=== PATIENT | male | born 1945 | race Caucasian/White ===

== ENCOUNTER 2017-11-27 13:35 | Inpatient (IN) | payer MEDICARE, OTHER ==
[~2017-11-27] VITALS: Ht 180.3 cm; Wt 89.0 kg
[2017-11-27] VITALS (19 sets, daily range): BP systolic 2–171; BP diastolic -7–92
[~2017-11-27 13:35] MED LIST: SODIUM CHLORIDE 0.9% 1,000 ML IV ONE
[2017-11-27] MEDS ORDERED: SODIUM CHLORIDE 0.9% 1,000 ML IV ONE ×2 (14:04→14:30)
[2017-11-27] MEDS ORDERED: MIDAZOLAM DRIP 50 mg/50mL 50 ML IV ONE (14:05)
[2017-11-27] MEDS: MIDAZOLAM DRIP 50 mg/50mL 50 ML IV SCH (14:15)
[2017-11-27] MEDS ORDERED: PHENYLEPHRINE HCL 10 MG/ML VL ONE (14:47)
[2017-11-27] MEDS: PHENYLEPHRINE INJ 20 MG in SODIUM CHL 0.9% 250 ML IV SCH (14:48)
[2017-11-27 14:50] LABS: Basophils # (auto) 0 uL; Basophils % (auto) 0.6 % (0.0-2.0); Eosinophils # (auto) 0.1 uL; Eosinophils % (auto) 1.7 % (0.0-7.0); Hemoglobin 11.2 g/dL (13.5-17.5); Lymphocytes # (auto) 1.3 uL; Lymphocytes % (auto) 16.1 % (10.0-50.0); Mean Corpuscular Hemoglobin 30.8 pg (28.0-32.0); Mean Corpuscular Hgb Conc. 33.9 g/dL (32.0-36.0); Mean Corpuscular Volume 91.1 fL (80.0-100.0); Monocytes # (auto) 0.6 uL; Neutrophils # (auto) 5.8 uL; Neutrophils % (auto) 73.6 % (37.0-80.0); Nucleated Red Blood Cells % 0.1 %; Platelet Count (auto) 197 10^3/uL (140-450); Red Blood Cells 3.62 10^6/uL (4.5-5.90); Red Cell Distribution Width 14.2 % (11.8-14.3); White Blood Cell 7.9 10^3/uL (4.4-10.8)
[2017-11-27 15:01] LABS: INR 1.44 (0.9-1.15); Partial Thromboplastin Time 25.4 sec (22.64-33.71); Prothrombin Time 15.7 sec (9.37-12.3)
[2017-11-27 15:10] LABS: Albumin 3.1 g/dL (3.4-5.0); Bilirubin, Total 0.6 mg/dL (0.2-1.0); Calcium 7.5 mg/dL (8.5-10.1); Total Protein 6.3 g/dL (6.4-8.2)
[2017-11-27 15:40] LABS: Potassium 5.7 mmol/L (3.5-5.1)
[2017-11-27] MEDS ORDERED: ALBUTEROL SULF 2.5 MG/0.5ML(0.5%) NEB SOLN NEB STA (15:58)
[2017-11-27] MEDS ORDERED: InsuLIN REG 1unit/0.01ml Soln (100units/ml) IV ONE (16:00)
[2017-11-27] MEDS ORDERED: DEXTROSE (50%) 50ML SYRG IV ONE (16:00)
[2017-11-27] MEDS ORDERED: CALCIUM GLUC 4.65meq/50ml D5AE 50 ML IV ONE (16:00)
[2017-11-27] MEDS ORDERED: PIPERACILLIN-TAZOB 3.375GM 50 ML IV ONE (16:45)
[2017-11-27] MEDS ORDERED: VANCOMYCIN PER PHARMACY 0 MG IV SCH (16:45)
[2017-11-27 17:16] LABS: Lactic Acid w/Reflex 3.4 mmol/L (0.4-2.0)
[2017-11-27] MEDS ORDERED: ATOR1TAB PO (17:42)
[2017-11-27] MEDS ORDERED: FURO20TA3 PO (17:42)
[2017-11-27] MEDS ORDERED: CLOP75TA28 PO (17:42)
[2017-11-27] MEDS ORDERED: LISI-275 PO (17:42)
[2017-11-27] MEDS ORDERED: ASP81EC PO (17:42)
[2017-11-27] MEDS ORDERED: CARV12.544 PO (17:42)
[2017-11-27] MEDS ORDERED: METF-370 PO (17:42)
[2017-11-27] MEDS ORDERED: SPIR25TA89 PO (17:42)
[2017-11-27] MEDS ORDERED: LORazepam 2MG/ML-1ML VIAL IV PRN (18:00)
[2017-11-27] MEDS ORDERED: DEXTROSE (50%) 50ML SYRG IV PRN (18:00)
[2017-11-27] MEDS ORDERED: MORPHINE SULFATE 4 MG/ML SYR/VIAL IV PRN ×2 (18:00)
[2017-11-27] MEDS ORDERED: PROMETHAZINE HCL 25 MG/ML 1ML IV PRN (18:00)
[2017-11-27] MEDS ORDERED: LACTULOSE 20Gm/30ML SOLN PO PRN (18:00)
[2017-11-27] MEDS ORDERED: PANTOPRAZOLE 80 MG in SODIUM CHL 0.9% 60 ML IV ONE (18:00)
[2017-11-27] MEDS ORDERED: NITROGLYCERIN 0.4 MG SL TAB SL PRN (18:00)
[2017-11-27] MEDS: VANCOMYCIN 1,250 MG in D5W 5% 250 ML IV SCH (18:15)
[2017-11-27 18:52] LABS: Urine Bacteria NONE SEEN /hpf (None Seen); Urine Blood 2+ /uL (Negative); Urine Hyaline Cast FEW /lpf (0 - 2); Urine Specific Gravity 1.013 (1.001-1.035); Urine WBC 7 /hpf (0 - 3)
[2017-11-27] MEDS ORDERED: EPINEPHrine HCL 1 MG/10 ML SYRG IV ONE (18:53)
[2017-11-27] MEDS ORDERED: SODIUM BICARBONATE 8.4% INJ 50ML SYRINGE IV ONE (18:53)
[2017-11-27] MEDS ORDERED: MAGNESIUM SULFATE 1GM/100ML 100 ML IV PRN (20:30)
[2017-11-27] MEDS: ACCU-CHEK COMFORT CURVE STRIP VI SCH (20:45)
[2017-11-27] MEDS: InsuLIN REG 1unit/0.01ml Soln (100units/ml) SC SCH (20:45)
[2017-11-27] MEDS: CLINDAMYCIN 600MG IV 50 ML IV SCH (22:00)
[2017-11-27] MEDS: ATORVASTATIN 20 MG TAB PO SCH (22:00)
[2017-11-27 22:03] LABS: Albumin 3.4 g/dL (3.4-5.0); BUN/Creatinine Ratio 31.3; Bilirubin, Total 1.1 mg/dL (0.2-1.0); Calcium 7.7 mg/dL (8.5-10.1); Magnesium 2.6 mg/dL (1.6-2.6); Potassium 4.9 mmol/L (3.5-5.1); Total Protein 6.4 g/dL (6.4-8.2)
[2017-11-27 22:06] LABS: INR 1.15 (0.9-1.15); Partial Thromboplastin Time 28.3 sec (22.64-33.71); Prothrombin Time 12.6 sec (9.37-12.3)
[2017-11-27 22:33] LABS: Basophils # (auto) 0 uL; Basophils % (auto) 0.1 % (0.0-2.0); Eosinophils # (auto) 0 uL; Hematocrit 32.3 % (41.0-53.0); Hemoglobin 10.9 g/dL (13.5-17.5); Lymphocytes # (auto) 0.3 uL; Lymphocytes % (auto) 2.4 % (10.0-50.0); Mean Corpuscular Hemoglobin 30.5 pg (28.0-32.0); Mean Corpuscular Hgb Conc. 33.8 g/dL (32.0-36.0); Mean Corpuscular Volume 90.2 fL (80.0-100.0); Monocytes # (auto) 0.9 uL; Monocytes % (auto) 6.5 % (0.0-12.0); Neutrophils # (auto) 12.5 uL; Platelet Count (auto) 156 10^3/uL (140-450); Red Blood Cells 3.58 10^6/uL (4.5-5.90); Red Cell Distribution Width 14.2 % (11.8-14.3); White Blood Cell 13.7 10^3/uL (4.4-10.8)
[2017-11-27] MEDS ORDERED: MEPERIDINE HCL (25 MG/ML) 1ML VIAL IV PRN (22:45)
[2017-11-27] MEDS ORDERED: MEPERIDINE HCL (25 MG/ML) 1ML VIAL ONE (22:59)
[2017-11-28] VITALS (104 sets, daily range): BP systolic 99–165; BP diastolic 45–101
[2017-11-28] MEDS: ACCU-CHEK COMFORT CURVE STRIP VI SCH ×6 (00:20→21:38)
[2017-11-28] MEDS: InsuLIN REG 1unit/0.01ml Soln (100units/ml) SC SCH ×6 (00:20→21:43)
[2017-11-28] MEDS ORDERED: PHENYLEPHRINE IV 250 ML IV ONE ×3 (00:25→13:09)
[2017-11-28] MEDS ORDERED: AMIODARONE HCL 900 MG in DEXTROSE 500 ML IV SCH (02:39)
[2017-11-28] MEDS ORDERED: PROPOFOL 100 ML IV ONE ×2 (02:41→15:50)
[2017-11-28] MEDS: VANCOMYCIN 1,250 MG in D5W 5% 250 ML IV SCH ×2 (05:00→17:00)
[2017-11-28] MEDS: CLINDAMYCIN 600MG IV 50 ML IV SCH (06:16)
[2017-11-28 06:32] LABS: Basophils # (auto) 0 uL; Basophils % (auto) 0.1 % (0.0-2.0); Eosinophils # (auto) 0 uL; Hematocrit 31.4 % (41.0-53.0); Hemoglobin 10.7 g/dL (13.5-17.5); Lymphocytes # (auto) 0.4 uL; Lymphocytes % (auto) 3.4 % (10.0-50.0); Mean Corpuscular Hemoglobin 30.7 pg (28.0-32.0); Mean Corpuscular Hgb Conc. 34.2 g/dL (32.0-36.0); Mean Corpuscular Volume 89.9 fL (80.0-100.0); Monocytes # (auto) 1.2 uL; Monocytes % (auto) 9.3 % (0.0-12.0); Neutrophils # (auto) 11.4 uL; Neutrophils % (auto) 87.2 % (37.0-80.0); Nucleated Red Blood Cells % 0.2 %; Platelet Count (auto) 166 10^3/uL (140-450); Red Cell Distribution Width 14.1 % (11.8-14.3); White Blood Cell 13.1 10^3/uL (4.4-10.8)
[2017-11-28 07:01] LABS: BUN/Creatinine Ratio 37.4; Calcium 7.6 mg/dL (8.5-10.1); Potassium 4.3 mmol/L (3.5-5.1)
[2017-11-28] MEDS: PHENYLEPHRINE INJ 20 MG in SODIUM CHL 0.9% 250 ML IV SCH ×3 (08:00→19:57)
[2017-11-28] MEDS ORDERED: PANTOPRAZOLE 80 MG in SODIUM CHL 0.9% 60 ML IV SCH (08:00)
[2017-11-28] MEDS: MIDAZOLAM DRIP 50 mg/50mL 50 ML IV SCH ×4 (08:19→21:43)
[2017-11-28] MEDS ORDERED: LEVOFLOXACIN 500MG 100 ML IV SCH (10:00)
[2017-11-28] MEDS ORDERED: ASPirin 81 mg TAB NG SCH (10:00)
[2017-11-28] MEDS ORDERED: OPTISON 3ml Vial for INJ IV ONE (11:43)
[2017-11-28] MEDS: PIPERACILLIN-TAZOB 3.375GM 50 ML IV SCH ×2 (12:24→21:43)
[2017-11-28] MEDS: CLOPIDOGREL BISULFATE 75 MG TAB NG SCH (12:25)
[2017-11-28] MEDS: PROPOFOL 100 ML IV SCH (16:20)
[2017-11-28] MEDS: ATORVASTATIN 20 MG TAB PO SCH (23:35)
[2017-11-28] MEDS: PANTOPRAZOLE 40 MG/10 ML VIAL IV SCH (23:35)
[2017-11-28] MEDS ORDERED: SODIUM CHLORIDE 0.9% 500 ML IV ONE (23:45)
[2017-11-29] VITALS (100 sets, daily range): BP systolic 89–164; BP diastolic 45–87
[2017-11-29] MEDS: ACCU-CHEK COMFORT CURVE STRIP VI SCH ×7 (00:56→23:53)
[2017-11-29] MEDS: InsuLIN REG 1unit/0.01ml Soln (100units/ml) SC SCH ×7 (00:56→23:53)
[2017-11-29] MEDS: PIPERACILLIN-TAZOB 3.375GM 50 ML IV SCH ×5 (01:45→23:48)
[2017-11-29] MEDS: MIDAZOLAM DRIP 50 mg/50mL 50 ML IV SCH ×2 (02:08→06:26)
[2017-11-29] MEDS: PHENYLEPHRINE INJ 20 MG in SODIUM CHL 0.9% 250 ML IV SCH ×2 (02:12→17:20)
[2017-11-29 04:19] LABS: Albumin 2.7 g/dL (3.4-5.0); Calcium 7.4 mg/dL (8.5-10.1); Potassium 3.8 mmol/L (3.5-5.1)
[2017-11-29 04:26] LABS: Bilirubin, Total 1.1 mg/dL (0.2-1.0); Total Protein 5.5 g/dL (6.4-8.2)
[2017-11-29 04:43] LABS: Basophils # (auto) 0 uL; Basophils % (auto) 0.1 % (0.0-2.0); Eosinophils # (auto) 0 uL; Eosinophils % (auto) 0.3 % (0.0-7.0); Hematocrit 31.2 % (41.0-53.0); Hemoglobin 10.8 g/dL (13.5-17.5); Lymphocytes # (auto) 0.5 uL; Mean Corpuscular Hemoglobin 31.2 pg (28.0-32.0); Mean Corpuscular Hgb Conc. 34.8 g/dL (32.0-36.0); Mean Corpuscular Volume 89.7 fL (80.0-100.0); Monocytes % (auto) 9.9 % (0.0-12.0); Neutrophils # (auto) 8.8 uL; Neutrophils % (auto) 84.7 % (37.0-80.0); Platelet Count (auto) 152 10^3/uL (140-450); Red Blood Cells 3.48 10^6/uL (4.5-5.90); Red Cell Distribution Width 14.3 % (11.8-14.3); White Blood Cell 10.4 10^3/uL (4.4-10.8)
[2017-11-29] MEDS: VANCOMYCIN 1,250 MG in D5W 5% 250 ML IV SCH ×2 (05:13→16:56)
[2017-11-29] MEDS: POTASSIUM CHL 20MEQ/100ML 100 ML IV SCH ×2 (08:58→10:39)
[2017-11-29] MEDS: PANTOPRAZOLE 40 MG/10 ML VIAL IV SCH ×2 (09:29→22:06)
[2017-11-29] MEDS: CLOPIDOGREL BISULFATE 75 MG TAB NG SCH (09:32)
[2017-11-29] MEDS: SODIUM CHLORIDE 0.9% 1,000 ML IV SCH (12:00)
[2017-11-29] MEDS: PROPOFOL 100 ML IV SCH ×2 (16:06→20:00)
[2017-11-29] MEDS: MORPHINE SULFATE 4 MG/ML SYR/VIAL IV PRN (18:10)
[2017-11-29] MEDS ORDERED: AMIODARONE HCL 900 MG IV ONE (19:40)
[2017-11-29] MEDS ORDERED: AMIODARONE HCL (50 MG/ ML) 3 ML VIAL IV ONE (19:41)
[2017-11-29] MEDS ORDERED: AMIODARONE HCL 150 MG in D5W 5% 100 ML IV ONE ×2 (19:45→20:00)
[2017-11-29] MEDS ORDERED: AMIODARONE HCL 900 MG in DEXTROSE 500 ML IV SCH ×2 (19:50→20:10)
[2017-11-29] MEDS ORDERED: ASPirin 81 mg TAB PO ONE (22:00)
[2017-11-29] MEDS: ATORVASTATIN 20 MG TAB PO SCH (22:07)
[2017-11-30] VITALS (104 sets, daily range): BP systolic 83–160; BP diastolic 39–106
[2017-11-30] MEDS: PHENYLEPHRINE INJ 20 MG in SODIUM CHL 0.9% 250 ML IV SCH ×3 (01:40→18:20)
[2017-11-30] MEDS ORDERED: AMIODARONE HCL 900 MG in DEXTROSE 500 ML IV SCH ×2 (01:50→10:48)
[2017-11-30] MEDS: InsuLIN REG 1unit/0.01ml Soln (100units/ml) SC SCH ×5 (04:00→20:00)
[2017-11-30] MEDS: ACCU-CHEK COMFORT CURVE STRIP VI SCH ×5 (04:00→20:00)
[2017-11-30] MEDS: PROPOFOL 100 ML IV SCH ×2 (04:07→22:00)
[2017-11-30] MEDS: SODIUM CHLORIDE 0.9% 1,000 ML IV SCH ×2 (04:07→14:40)
[2017-11-30 04:10] LABS: Basophils # (auto) 0 uL; Basophils % (auto) 0.2 % (0.0-2.0); Eosinophils # (auto) 0 uL; Eosinophils % (auto) 0.1 % (0.0-7.0); Hematocrit 25.8 % (41.0-53.0); Lymphocytes # (auto) 0.6 uL; Lymphocytes % (auto) 5.9 % (10.0-50.0); Mean Corpuscular Hemoglobin 31.3 pg (28.0-32.0); Mean Corpuscular Hgb Conc. 34.9 g/dL (32.0-36.0); Mean Corpuscular Volume 89.6 fL (80.0-100.0); Monocytes # (auto) 1.3 uL; Monocytes % (auto) 13.8 % (0.0-12.0); Neutrophils # (auto) 7.5 uL; Platelet Count (auto) 112 10^3/uL (140-450); Red Blood Cells 2.88 10^6/uL (4.5-5.90); Red Cell Distribution Width 14.5 % (11.8-14.3); White Blood Cell 9.4 10^3/uL (4.4-10.8)
[2017-11-30 04:31] LABS: BUN/Creatinine Ratio 30.8; Calcium 7.5 mg/dL (8.5-10.1); Potassium 3.9 mmol/L (3.5-5.1)
[2017-11-30 05:14] LABS: INR 1.06 (0.9-1.15); Prothrombin Time 11.6 sec (9.37-12.3)
[2017-11-30] MEDS: VANCOMYCIN 1,250 MG in D5W 5% 250 ML IV SCH (05:48)
[2017-11-30] MEDS: PIPERACILLIN-TAZOB 3.375GM 50 ML IV SCH ×3 (05:49→18:23)
[2017-11-30] MEDS: POTASSIUM CHL 20MEQ/100ML 100 ML IV SCH ×2 (08:30→09:50)
[2017-11-30] MEDS: PANTOPRAZOLE 40 MG/10 ML VIAL IV SCH ×2 (09:49→22:00)
[2017-11-30] MEDS: CLOPIDOGREL BISULFATE 75 MG TAB NG SCH (09:49)
[2017-11-30] MEDS: ASPirin 81 mg TAB PO SCH (09:50)
[2017-11-30] MEDS: MIDAZOLAM DRIP 50 mg/50mL 50 ML IV SCH (14:17)
[2017-11-30] MEDS: VANCOMYCIN 1,500 MG in D5W 5% 250 ML IV SCH (18:22)
[2017-11-30] MEDS: ATORVASTATIN 20 MG TAB PO SCH (22:00)
[2017-12-01] VITALS (106 sets, daily range): BP systolic 79–170; BP diastolic 39–110
[2017-12-01] MEDS: PROPOFOL 100 ML IV SCH ×2 (01:30→06:10)
[2017-12-01] MEDS ORDERED: AMIODARONE HCL 900 MG in DEXTROSE 500 ML IV SCH (01:31)
[2017-12-01] MEDS ORDERED: AMIODARONE HCL 900 MG IV ONE (01:37)
[2017-12-01] MEDS: PHENYLEPHRINE INJ 20 MG in SODIUM CHL 0.9% 250 ML IV SCH ×3 (02:40→21:00)
[2017-12-01] MEDS: SODIUM CHLORIDE 0.9% 1,000 ML IV SCH ×2 (04:00→11:37)
[2017-12-01] MEDS: ACCU-CHEK COMFORT CURVE STRIP VI SCH ×6 (04:00→20:00)
[2017-12-01] MEDS: InsuLIN REG 1unit/0.01ml Soln (100units/ml) SC SCH ×6 (04:00→20:00)
[2017-12-01 04:41] LABS: Basophils # (auto) 0 uL; Basophils % (auto) 0.4 % (0.0-2.0); Eosinophils # (auto) 0.1 uL; Eosinophils % (auto) 0.8 % (0.0-7.0); Hematocrit 25.7 % (41.0-53.0); Lymphocytes % (auto) 13.2 % (10.0-50.0); Mean Corpuscular Hemoglobin 31.2 pg (28.0-32.0); Mean Corpuscular Hgb Conc. 34.9 g/dL (32.0-36.0); Mean Corpuscular Volume 89.2 fL (80.0-100.0); Monocytes % (auto) 13.3 % (0.0-12.0); Neutrophils # (auto) 5.4 uL; Neutrophils % (auto) 72.3 % (37.0-80.0); Nucleated Red Blood Cells % 0.1 %; Platelet Count (auto) 106 10^3/uL (140-450); Red Blood Cells 2.88 10^6/uL (4.5-5.90); Red Cell Distribution Width 14.9 % (11.8-14.3); White Blood Cell 7.5 10^3/uL (4.4-10.8)
[2017-12-01 04:54] LABS: BUN/Creatinine Ratio 24.1; Potassium 3.9 mmol/L (3.5-5.1)
[2017-12-01] MEDS: VANCOMYCIN 1,500 MG in D5W 5% 250 ML IV SCH ×2 (05:16→17:12)
[2017-12-01] MEDS: PIPERACILLIN-TAZOB 3.375GM 50 ML IV SCH ×4 (06:00→18:00)
[2017-12-01] MEDS: POTASSIUM CHL 20MEQ/100ML 100 ML IV PRN (06:52)
[2017-12-01] MEDS: CLOPIDOGREL BISULFATE 75 MG TAB NG SCH (09:42)
[2017-12-01] MEDS: ASPirin 81 mg TAB PO SCH (09:42)
[2017-12-01] MEDS: PANTOPRAZOLE 40 MG/10 ML VIAL IV SCH ×2 (09:42→22:00)
[2017-12-01] MEDS ORDERED: FUROSEMIDE 40 MG/4 ML VIAL IV ONE (11:30)
[2017-12-01] MEDS ORDERED: Diabetisource AC 1 Liter GT SCH (11:30)
[2017-12-01] MEDS ORDERED: POTASSIUM CHL 10% (20 MEQ/15ML) 15ml ORAL SOLN GT ONE (11:30)
[2017-12-01] MEDS: MIDAZOLAM DRIP 50 mg/50mL 50 ML IV SCH (11:41)
[2017-12-01] MEDS ORDERED: ENOXAPARIN SOD 60 MG/0.6 ML SYRINGE SC ONE (12:30)
[2017-12-01] MEDS: AMIODARONE HCL 900 MG in DEXTROSE 500 ML IV SCH ×2 (12:30→21:00)
[2017-12-01 14:58] LABS: Free T4 (Free Thyroxine) 1.06 ng/dL (0.89-1.76)
[2017-12-01 14:59] LABS: Free T3 1.73 pg/mL (2.3-4.2)
[2017-12-01] MEDS: ENOXAPARIN SOD 60 MG/0.6 ML SYRINGE SC SCH (22:00)
[2017-12-01] MEDS: ATORVASTATIN 20 MG TAB PO SCH (22:00)
[2017-12-02] VITALS (88 sets, daily range): BP systolic 84–183; BP diastolic 40–117
[2017-12-02] MEDS: InsuLIN REG 1unit/0.01ml Soln (100units/ml) SC SCH ×6 (04:00→20:42)
[2017-12-02] MEDS: ACCU-CHEK COMFORT CURVE STRIP VI SCH ×6 (04:07→20:00)
[2017-12-02] MEDS: PHENYLEPHRINE INJ 20 MG in SODIUM CHL 0.9% 250 ML IV SCH ×3 (04:07→20:51)
[2017-12-02] MEDS: PROPOFOL 100 ML IV SCH (04:30)
[2017-12-02] MEDS: VANCOMYCIN 1,500 MG in D5W 5% 250 ML IV SCH ×2 (05:00→17:15)
[2017-12-02] MEDS: PIPERACILLIN-TAZOB 3.375GM 50 ML IV SCH ×2 (06:00)
[2017-12-02 07:18] LABS: Basophils # (auto) 0 uL; Basophils % (auto) 0.2 % (0.0-2.0); Eosinophils # (auto) 0.1 uL; Eosinophils % (auto) 1.4 % (0.0-7.0); Hematocrit 27.4 % (41.0-53.0); Hemoglobin 9.6 g/dL (13.5-17.5); Lymphocytes # (auto) 0.7 uL; Lymphocytes % (auto) 9.9 % (10.0-50.0); Mean Corpuscular Hemoglobin 30.9 pg (28.0-32.0); Mean Corpuscular Hgb Conc. 34.9 g/dL (32.0-36.0); Mean Corpuscular Volume 88.4 fL (80.0-100.0); Monocytes % (auto) 13.6 % (0.0-12.0); Neutrophils # (auto) 5.3 uL; Neutrophils % (auto) 74.9 % (37.0-80.0); Platelet Count (auto) 117 10^3/uL (140-450); Red Cell Distribution Width 15.6 % (11.8-14.3); White Blood Cell 7.1 10^3/uL (4.4-10.8)
[2017-12-02 07:23] LABS: Calcium 7.9 mg/dL (8.5-10.1); Potassium 3.5 mmol/L (3.5-5.1)
[2017-12-02 07:28] LABS: BUN/Creatinine Ratio 19.4
[2017-12-02] MEDS: ASPirin 81 mg TAB PO SCH (10:00)
[2017-12-02] MEDS: CLOPIDOGREL BISULFATE 75 MG TAB NG SCH (10:08)
[2017-12-02] MEDS: PANTOPRAZOLE 40 MG/10 ML VIAL IV SCH ×2 (10:08→22:37)
[2017-12-02] MEDS: ENOXAPARIN SOD 60 MG/0.6 ML SYRINGE SC SCH ×2 (10:08→22:39)
[2017-12-02] MEDS: SODIUM CHLORIDE 0.9% 1,000 ML IV SCH (10:27)
[2017-12-02] MEDS ORDERED: EPINEPHrine HCL 1 MG/10 ML SYRG ONE (11:06)
[2017-12-02] MEDS ORDERED: DEXTROSE 50% SYRINGE 0 ML IV ONE (11:07)
[2017-12-02] MEDS: AMIODARONE HCL 900 MG in DEXTROSE 500 ML IV SCH ×2 (12:16→20:30)
[2017-12-02] MEDS ORDERED: FUROSEMIDE 40 MG/4 ML VIAL IV ONE (12:45)
[2017-12-02] MEDS ORDERED: POTASSIUM CHL 10% (20 MEQ/15ML) 15ml ORAL SOLN GT ONE (12:45)
[2017-12-02] MEDS: MIDAZOLAM DRIP 50 mg/50mL 50 ML IV SCH (14:17)
[2017-12-02] MEDS: cefTRIAXone 1GM/10ml IVPUSH 10 ML IV SCH (15:20)
[2017-12-02] MEDS: FREE WATER GT SCH (17:06)
[2017-12-02] MEDS: POTASSIUM CHL 20MEQ/100ML 100 ML IV PRN (17:35)
[2017-12-02] MEDS: ATORVASTATIN 20 MG TAB PO SCH (22:39)
[2017-12-03] VITALS (106 sets, daily range): BP systolic 80–170; BP diastolic 38–110
[2017-12-03] MEDS: FREE WATER GT SCH ×4 (00:04→18:00)
[2017-12-03] MEDS: PROPOFOL 100 ML IV SCH (00:05)
[2017-12-03] MEDS: ACCU-CHEK COMFORT CURVE STRIP VI SCH ×6 (00:08→20:06)
[2017-12-03] MEDS: InsuLIN REG 1unit/0.01ml Soln (100units/ml) SC SCH ×6 (00:15→20:07)
[2017-12-03] MEDS: AMIODARONE HCL 900 MG in DEXTROSE 500 ML IV SCH (03:09)
[2017-12-03 03:47] LABS: Basophils # (auto) 0 uL; Basophils % (auto) 0.5 % (0.0-2.0); Eosinophils # (auto) 0.1 uL; Eosinophils % (auto) 1.7 % (0.0-7.0); Hematocrit 27.7 % (41.0-53.0); Hemoglobin 9.6 g/dL (13.5-17.5); Lymphocytes # (auto) 0.6 uL; Lymphocytes % (auto) 10.5 % (10.0-50.0); Mean Corpuscular Hemoglobin 30.5 pg (28.0-32.0); Mean Corpuscular Hgb Conc. 34.8 g/dL (32.0-36.0); Mean Corpuscular Volume 87.5 fL (80.0-100.0); Monocytes # (auto) 0.9 uL; Monocytes % (auto) 15.2 % (0.0-12.0); Neutrophils # (auto) 4.5 uL; Neutrophils % (auto) 72.1 % (37.0-80.0); Platelet Count (auto) 128 10^3/uL (140-450); Red Blood Cells 3.17 10^6/uL (4.5-5.90); White Blood Cell 6.2 10^3/uL (4.4-10.8)
[2017-12-03 04:05] LABS: BUN/Creatinine Ratio 21.9; Calcium 7.7 mg/dL (8.5-10.1); Potassium 3.7 mmol/L (3.5-5.1)
[2017-12-03] MEDS: VANCOMYCIN 1,500 MG in D5W 5% 250 ML IV SCH ×2 (04:23→17:14)
[2017-12-03] MEDS: PHENYLEPHRINE INJ 20 MG in SODIUM CHL 0.9% 250 ML IV SCH ×3 (05:11→21:51)
[2017-12-03] MEDS: POTASSIUM CHL 20MEQ/100ML 100 ML IV PRN (06:03)
[2017-12-03] MEDS: cefTRIAXone 1GM/10ml IVPUSH 10 ML IV SCH (08:12)
[2017-12-03] MEDS: PANTOPRAZOLE 40 MG/10 ML VIAL IV SCH ×2 (10:35→22:08)
[2017-12-03] MEDS: CLOPIDOGREL BISULFATE 75 MG TAB NG SCH (10:35)
[2017-12-03] MEDS: POTASSIUM CHL 10% (20 MEQ/15ML) 15ml ORAL SOLN GT SCH (10:35)
[2017-12-03] MEDS: FUROSEMIDE 40 MG/4 ML VIAL IV SCH (10:35)
[2017-12-03] MEDS: ENOXAPARIN SOD 60 MG/0.6 ML SYRINGE SC SCH (10:36)
[2017-12-03] MEDS: ASPirin 81 mg TAB PO SCH (10:36)
[2017-12-03] MEDS: PIPERACILLIN-TAZOB 3.375GM 50 ML IV SCH ×2 (12:44→19:51)
[2017-12-03] MEDS: MIDAZOLAM DRIP 50 mg/50mL 50 ML IV SCH (14:17)
[2017-12-03] MEDS: ATORVASTATIN 20 MG TAB PO SCH (22:08)
[2017-12-04] VITALS (101 sets, daily range): BP systolic 78–165; BP diastolic 38–115
[2017-12-04] MEDS: ACCU-CHEK COMFORT CURVE STRIP VI SCH ×7 (00:23→23:54)
[2017-12-04] MEDS: InsuLIN REG 1unit/0.01ml Soln (100units/ml) SC SCH ×7 (00:27→23:54)
[2017-12-04] MEDS: PIPERACILLIN-TAZOB 3.375GM 50 ML IV SCH ×5 (00:35→23:53)
[2017-12-04 03:57] LABS: Basophils # (auto) 0 uL; Basophils % (auto) 0.5 % (0.0-2.0); Eosinophils # (auto) 0.1 uL; Eosinophils % (auto) 1.9 % (0.0-7.0); Hematocrit 28.4 % (41.0-53.0); Lymphocytes # (auto) 0.6 uL; Lymphocytes % (auto) 8.2 % (10.0-50.0); Mean Corpuscular Hemoglobin 30.8 pg (28.0-32.0); Mean Corpuscular Hgb Conc. 35.1 g/dL (32.0-36.0); Mean Corpuscular Volume 87.6 fL (80.0-100.0); Monocytes # (auto) 1.1 uL; Monocytes % (auto) 14.9 % (0.0-12.0); Neutrophils # (auto) 5.5 uL; Neutrophils % (auto) 74.5 % (37.0-80.0); Platelet Count (auto) 140 10^3/uL (140-450); Red Blood Cells 3.24 10^6/uL (4.5-5.90); Red Cell Distribution Width 15.5 % (11.8-14.3); White Blood Cell 7.4 10^3/uL (4.4-10.8)
[2017-12-04 04:24] LABS: BUN/Creatinine Ratio 23.9; Potassium 3.8 mmol/L (3.5-5.1)
[2017-12-04] MEDS: VANCOMYCIN 1,500 MG in D5W 5% 250 ML IV SCH ×2 (04:43→17:00)
[2017-12-04] MEDS ORDERED: POTASSIUM CHL 20MEQ/100ML 100 ML IV ONE (05:08)
[2017-12-04] MEDS: FREE WATER GT SCH ×4 (06:00→18:00)
[2017-12-04] MEDS: PHENYLEPHRINE INJ 20 MG in SODIUM CHL 0.9% 250 ML IV SCH ×3 (06:11→22:51)
[2017-12-04] MEDS: POTASSIUM CHL 20MEQ/100ML 100 ML IV PRN (07:47)
[2017-12-04] MEDS: PANTOPRAZOLE 40 MG/10 ML VIAL IV SCH ×2 (10:06→21:59)
[2017-12-04] MEDS: ASPirin 81 mg TAB PO SCH (10:06)
[2017-12-04] MEDS: CLOPIDOGREL BISULFATE 75 MG TAB NG SCH (10:06)
[2017-12-04] MEDS: FUROSEMIDE 40 MG/4 ML VIAL IV SCH (10:06)
[2017-12-04] MEDS: POTASSIUM CHL 10% (20 MEQ/15ML) 15ml ORAL SOLN GT SCH (10:07)
[2017-12-04] MEDS: MIDAZOLAM DRIP 50 mg/50mL 50 ML IV SCH (14:17)
[2017-12-04] MEDS: PROPOFOL 100 ML IV SCH (16:06)
[2017-12-04] MEDS: AMIODARONE HCL 900 MG in DEXTROSE 500 ML IV SCH (20:13)
[2017-12-04] MEDS: MORPHINE SULFATE 4 MG/ML SYR/VIAL IV PRN (21:57)
[2017-12-04] MEDS: ATORVASTATIN 20 MG TAB PO SCH (21:59)
[2017-12-05] VITALS (66 sets, daily range): BP systolic 82–178; BP diastolic 39–112
[2017-12-05 03:43] LABS: Basophils # (auto) 0 uL; Basophils % (auto) 0.2 % (0.0-2.0); Eosinophils # (auto) 0.2 uL; Eosinophils % (auto) 2.2 % (0.0-7.0); Hemoglobin 10.1 g/dL (13.5-17.5); Lymphocytes # (auto) 0.5 uL; Lymphocytes % (auto) 5.8 % (10.0-50.0); Mean Corpuscular Hemoglobin 30.4 pg (28.0-32.0); Mean Corpuscular Hgb Conc. 34.7 g/dL (32.0-36.0); Mean Corpuscular Volume 87.8 fL (80.0-100.0); Monocytes # (auto) 1.1 uL; Monocytes % (auto) 12.6 % (0.0-12.0); Neutrophils # (auto) 6.9 uL; Neutrophils % (auto) 79.2 % (37.0-80.0); Platelet Count (auto) 157 10^3/uL (140-450); Red Cell Distribution Width 15.3 % (11.8-14.3); White Blood Cell 8.7 10^3/uL (4.4-10.8)
[2017-12-05 03:54] LABS: Albumin 2.7 g/dL (3.4-5.0); Calcium 8.2 mg/dL (8.5-10.1); Potassium 3.6 mmol/L (3.5-5.1)
[2017-12-05 03:57] LABS: Bilirubin, Total 1.5 mg/dL (0.2-1.0); Total Protein 5.6 g/dL (6.4-8.2)
[2017-12-05] MEDS: ACCU-CHEK COMFORT CURVE STRIP VI SCH ×3 (04:08→20:10)
[2017-12-05] MEDS: InsuLIN REG 1unit/0.01ml Soln (100units/ml) SC SCH ×3 (04:10→20:10)
[2017-12-05] MEDS ORDERED: POTASSIUM CHL 20MEQ/100ML 100 ML IV ONE (04:21)
[2017-12-05] MEDS: VANCOMYCIN 1,500 MG in D5W 5% 250 ML IV SCH ×2 (04:27→17:17)
[2017-12-05] MEDS: FREE WATER GT SCH ×2 (05:27)
[2017-12-05] MEDS: PHENYLEPHRINE INJ 20 MG in SODIUM CHL 0.9% 250 ML IV SCH (06:24)
[2017-12-05] MEDS: PIPERACILLIN-TAZOB 3.375GM 50 ML IV SCH ×3 (06:24→23:00)
[2017-12-05] MEDS ORDERED: MORPHINE SULFATE 4 MG/ML SYR/VIAL IV PRN ×2 (09:00)
[2017-12-05] MEDS ORDERED: LEVALBUTEROL HCL 1.25 MG/3 ML NEB NEB ONE (09:15)
[2017-12-05] MEDS ORDERED: FUROSEMIDE 40 MG/4 ML VIAL IV SCH (09:15)
[2017-12-05] MEDS ORDERED: ACETYLCYSTEINE 10 %(100MG/ML) SOL 4ML NEB ONE (09:15)
[2017-12-05] MEDS ORDERED: IPRATROPIUM BROM 0.5 MG/2.5ML INH SOL NEB ONE (09:15)
[2017-12-05] MEDS: POTASSIUM CHL 10% (20 MEQ/15ML) 15ml ORAL SOLN GT SCH (09:21)
[2017-12-05] MEDS: CLOPIDOGREL BISULFATE 75 MG TAB NG SCH (10:00)
[2017-12-05] MEDS ORDERED: ACETYLCYSTEINE 10 %(100MG/ML) SOL 4ML NEB SCH (10:00)
[2017-12-05] MEDS: ASPirin 81 mg TAB PO SCH (10:00)
[2017-12-05] MEDS ORDERED: ENOXAPARIN SOD 40 MG/0.4 ML SYRINGE SC SCH (10:00)
[2017-12-05] MEDS: PANTOPRAZOLE 40 MG/10 ML VIAL IV SCH ×2 (10:06→22:15)
[2017-12-05] MEDS ORDERED: PATIENTS OWN MEDICATION (XOPENEX 1.25 MG) IN SCH (12:00)
[2017-12-05] MEDS: LEVALBUTEROL HCL 1.25 MG/3 ML NEB NEB SCH ×2 (12:49→19:46)
[2017-12-05] MEDS: IPRATROPIUM BROM 0.5 MG/2.5ML INH SOL NEB SCH ×2 (12:49→19:46)
[2017-12-05] MEDS: ACETYLCYSTEINE 10 %(100MG/ML) SOL 4ML NEB SCH ×2 (12:49→19:47)
[2017-12-05] MEDS ORDERED: Diabetisource AC 1 Liter GT SCH (13:30)
[2017-12-05] MEDS ORDERED: METOPROLOL TARTRATE 25 MG TAB PO SCH ×2 (14:36→22:00)
[2017-12-05 14:59] LABS: Magnesium 2.1 mg/dL (1.6-2.6); Potassium 3.5 mmol/L (3.5-5.1)
[2017-12-05] MEDS: FUROSEMIDE INJECTION 250 MG in D5W 5% 225 ML IV SCH (15:44)
[2017-12-05] MEDS ORDERED: BENZOCAINE (DENTAL) 20 % SPRAY 60ML MT ONE (18:15)
[2017-12-05] MEDS: POTASSIUM CHL 20MEQ/100ML 100 ML IV PRN ×3 (18:27→22:30)
[2017-12-05] MEDS: AMIODARONE HCL 900 MG in DEXTROSE 500 ML IV SCH (20:30)
[2017-12-05] MEDS: LORazepam 2MG/ML-1ML VIAL IV PRN (20:55)
[2017-12-05] MEDS: ATORVASTATIN 20 MG TAB PO SCH (22:15)
[2017-12-06] VITALS (48 sets, daily range): BP systolic 86–163; BP diastolic 36–102
[2017-12-06] MEDS ORDERED: EPINEPHrine HCL 0.5 ML NEB ONE (00:36)
[2017-12-06] MEDS: IPRATROPIUM BROM 0.5 MG/2.5ML INH SOL NEB SCH ×4 (00:39→19:02)
[2017-12-06] MEDS: ACETYLCYSTEINE 10 %(100MG/ML) SOL 4ML NEB SCH ×4 (00:40→19:02)
[2017-12-06] MEDS: ACCU-CHEK COMFORT CURVE STRIP VI SCH ×4 (02:00→20:00)
[2017-12-06] MEDS: PIPERACILLIN-TAZOB 3.375GM 50 ML IV SCH ×2 (02:00→07:30)
[2017-12-06] MEDS: InsuLIN REG 1unit/0.01ml Soln (100units/ml) SC SCH ×4 (02:00→21:00)
[2017-12-06 04:48] LABS: Basophils # (auto) 0 uL; Basophils % (auto) 0.3 % (0.0-2.0); Eosinophils # (auto) 0.2 uL; Eosinophils % (auto) 2.4 % (0.0-7.0); Hematocrit 27.4 % (41.0-53.0); Hemoglobin 9.7 g/dL (13.5-17.5); Lymphocytes # (auto) 0.6 uL; Mean Corpuscular Hemoglobin 30.8 pg (28.0-32.0); Mean Corpuscular Hgb Conc. 35.5 g/dL (32.0-36.0); Mean Corpuscular Volume 86.9 fL (80.0-100.0); Monocytes # (auto) 0.9 uL; Monocytes % (auto) 11.3 % (0.0-12.0); Neutrophils # (auto) 6.3 uL; Platelet Count (auto) 182 10^3/uL (140-450); Red Blood Cells 3.16 10^6/uL (4.5-5.90); Red Cell Distribution Width 15.6 % (11.8-14.3)
[2017-12-06 05:06] LABS: Albumin 2.7 g/dL (3.4-5.0); Calcium 8.4 mg/dL (8.5-10.1); Potassium 3.4 mmol/L (3.5-5.1)
[2017-12-06 05:12] LABS: Bilirubin, Total 1.5 mg/dL (0.2-1.0); Total Protein 6.3 g/dL (6.4-8.2)
[2017-12-06] MEDS: VANCOMYCIN 1,500 MG in D5W 5% 250 ML IV SCH ×2 (05:15→17:24)
[2017-12-06] MEDS: LEVALBUTEROL HCL 1.25 MG/3 ML NEB NEB SCH ×4 (06:21→19:05)
[2017-12-06] MEDS: LORazepam 2MG/ML-1ML VIAL IV PRN ×2 (08:31→23:30)
[2017-12-06] MEDS: PANTOPRAZOLE 40 MG/10 ML VIAL IV SCH ×2 (10:00→21:11)
[2017-12-06] MEDS ORDERED: TPN PER PHARMACY 0 ML IV SCH (10:15)
[2017-12-06] MEDS ORDERED: ENOXAPARIN SOD 100 MG/1 ML SYRINGE SC ONE (10:45)
[2017-12-06] MEDS: METOPROLOL TARTRATE 1MG/1ML-5ML VIAL IV SCH (11:36)
[2017-12-06 12:11] LABS: Magnesium 2.2 mg/dL (1.6-2.6); Phosphorus 3.6 mg/dL (2.5-4.90)
[2017-12-06] MEDS: POTASSIUM CHL 20MEQ/100ML 100 ML IV SCH ×2 (12:30→13:49)
[2017-12-06] MEDS: POTASSIUM CHL 20MEQ/100ML 100 ML IV PRN (13:16)
[2017-12-06] MEDS: PIPERACILLIN-TAZOB 3.375GM 100 ML IV SCH ×2 (13:19→21:00)
[2017-12-06] MEDS: FUROSEMIDE INJECTION 250 MG in D5W 5% 225 ML IV SCH (16:00)
[2017-12-06 18:58] LABS: Magnesium 2.2 mg/dL (1.6-2.6); Potassium 3.4 mmol/L (3.5-5.1)
[2017-12-06] MEDS ORDERED: TPN PER PHARMACY IV NR ×9 (20:00)
[2017-12-06] MEDS: ENOXAPARIN SOD 100 MG/1 ML SYRINGE SC SCH (21:12)
[2017-12-07] VITALS (34 sets, daily range): BP systolic 0–159; BP diastolic 0–105
[2017-12-07] MEDS: ACETYLCYSTEINE 10 %(100MG/ML) SOL 4ML NEB SCH ×3 (00:45→18:42)
[2017-12-07] MEDS: LEVALBUTEROL HCL 1.25 MG/3 ML NEB NEB SCH ×4 (00:46→18:42)
[2017-12-07] MEDS: IPRATROPIUM BROM 0.5 MG/2.5ML INH SOL NEB SCH ×4 (00:46→18:41)
[2017-12-07] MEDS: ACCU-CHEK COMFORT CURVE STRIP VI SCH ×4 (02:00→17:52)
[2017-12-07] MEDS: InsuLIN REG 1unit/0.01ml Soln (100units/ml) SC SCH ×4 (02:00→17:51)
[2017-12-07 04:22] LABS: Basophils # (auto) 0.1 uL; Basophils % (auto) 0.6 % (0.0-2.0); Eosinophils # (auto) 0.3 uL; Eosinophils % (auto) 3.9 % (0.0-7.0); Hematocrit 28.2 % (41.0-53.0); Hemoglobin 9.9 g/dL (13.5-17.5); Lymphocytes # (auto) 0.7 uL; Lymphocytes % (auto) 8.4 % (10.0-50.0); Mean Corpuscular Hemoglobin 30.4 pg (28.0-32.0); Mean Corpuscular Hgb Conc. 35.2 g/dL (32.0-36.0); Mean Corpuscular Volume 86.4 fL (80.0-100.0); Monocytes # (auto) 0.8 uL; Monocytes % (auto) 9.5 % (0.0-12.0); Neutrophils # (auto) 6.5 uL; Neutrophils % (auto) 77.6 % (37.0-80.0); Platelet Count (auto) 207 10^3/uL (140-450); Red Blood Cells 3.26 10^6/uL (4.5-5.90); Red Cell Distribution Width 15.3 % (11.8-14.3); White Blood Cell 8.4 10^3/uL (4.4-10.8)
[2017-12-07 04:45] LABS: Albumin 2.7 g/dL (3.4-5.0); BUN/Creatinine Ratio 16.9; Bilirubin, Total 1.3 mg/dL (0.2-1.0); Magnesium 2.3 mg/dL (1.6-2.6); Phosphorus 2.8 mg/dL (2.5-4.90); Potassium 3.1 mmol/L (3.5-5.1); Pre Albumin 9.8 mg/dL (20.0-40.0); Total Protein 6.3 g/dL (6.4-8.2)
[2017-12-07] MEDS: VANCOMYCIN 1,500 MG in D5W 5% 250 ML IV SCH ×2 (05:07→17:45)
[2017-12-07] MEDS: METOPROLOL TARTRATE 1MG/1ML-5ML VIAL IV SCH ×5 (06:00→21:01)
[2017-12-07] MEDS: POTASSIUM CHL 20MEQ/100ML 100 ML IV PRN ×6 (08:00→18:43)
[2017-12-07] MEDS: PIPERACILLIN-TAZOB 3.375GM 100 ML IV SCH ×4 (08:00→20:00)
[2017-12-07] MEDS: PANTOPRAZOLE 40 MG/10 ML VIAL IV SCH ×2 (09:40→21:36)
[2017-12-07] MEDS: ENOXAPARIN SOD 100 MG/1 ML SYRINGE SC SCH ×2 (09:41→21:36)
[2017-12-07] MEDS ORDERED: DIGOXIN (250MCG/ML) 2 ML AMPULE IV ONE (11:30)
[2017-12-07] MEDS ORDERED: DEXTROSE (50%) 50ML SYRG IV SCH (12:00)
[2017-12-07] MEDS: LORazepam 2MG/ML-1ML VIAL IV PRN (12:33)
[2017-12-07] MEDS: DIGOXIN (250MCG/ML) 2 ML AMPULE IV SCH ×2 (12:35→17:46)
[2017-12-07 14:53] LABS: Magnesium 2.2 mg/dL (1.6-2.6); Potassium 3.3 mmol/L (3.5-5.1)
[2017-12-07] MEDS: AMIODARONE HCL 900 MG in DEXTROSE 500 ML IV SCH (16:30)
[2017-12-07] MEDS: FUROSEMIDE INJECTION 250 MG in D5W 5% 225 ML IV SCH (16:32)
[2017-12-07] MEDS: MEPERIDINE HCL (25 MG/ML) 1ML VIAL IV PRN (16:42)
[2017-12-07] MEDS: NYSTATIN (MOUTH-THROAT) 500,000 UNITS/5 ML SUSP MT SCH ×2 (17:46→21:36)
[2017-12-07] MEDS ORDERED: TPN PER PHARMACY IV NR ×11 (20:00)
[2017-12-08] VITALS (27 sets, daily range): BP systolic 60–180; BP diastolic 26–97
[2017-12-08] MEDS: ACETYLCYSTEINE 10 %(100MG/ML) SOL 4ML NEB SCH ×4 (00:26→19:02)
[2017-12-08] MEDS: LEVALBUTEROL HCL 1.25 MG/3 ML NEB NEB SCH ×4 (00:26→19:02)
[2017-12-08] MEDS: IPRATROPIUM BROM 0.5 MG/2.5ML INH SOL NEB SCH ×4 (00:27→19:02)
[2017-12-08 00:44] LABS: Calcium 8.3 mg/dL (8.5-10.1); Potassium 3.6 mmol/L (3.5-5.1)
[2017-12-08] MEDS: ACCU-CHEK COMFORT CURVE STRIP VI SCH ×5 (01:00→23:39)
[2017-12-08] MEDS: InsuLIN REG 1unit/0.01ml Soln (100units/ml) SC SCH ×5 (01:16→23:53)
[2017-12-08] MEDS: PIPERACILLIN-TAZOB 3.375GM 100 ML IV SCH ×5 (01:40→23:38)
[2017-12-08] MEDS: DIGOXIN (250MCG/ML) 2 ML AMPULE IV SCH ×5 (01:40→23:39)
[2017-12-08] MEDS: VANCOMYCIN 1,500 MG in D5W 5% 250 ML IV SCH (05:00)
[2017-12-08 05:49] LABS: Basophils # (auto) 0.1 uL; Basophils % (auto) 0.7 % (0.0-2.0); Eosinophils # (auto) 0.4 uL; Eosinophils % (auto) 3.1 % (0.0-7.0); Hematocrit 29.8 % (41.0-53.0); Hemoglobin 10.3 g/dL (13.5-17.5); Lymphocytes # (auto) 0.8 uL; Lymphocytes % (auto) 5.3 % (10.0-50.0); Mean Corpuscular Hgb Conc. 34.5 g/dL (32.0-36.0); Mean Corpuscular Volume 86.8 fL (80.0-100.0); Monocytes # (auto) 1.1 uL; Monocytes % (auto) 7.7 % (0.0-12.0); Neutrophils # (auto) 12.2 uL; Neutrophils % (auto) 83.2 % (37.0-80.0); Platelet Count (auto) 296 10^3/uL (140-450); Red Blood Cells 3.43 10^6/uL (4.5-5.90); Red Cell Distribution Width 15.4 % (11.8-14.3); White Blood Cell 14.6 10^3/uL (4.4-10.8)
[2017-12-08] MEDS: METOPROLOL TARTRATE 1MG/1ML-5ML VIAL IV SCH ×4 (06:00→17:45)
[2017-12-08] MEDS: NYSTATIN (MOUTH-THROAT) 500,000 UNITS/5 ML SUSP MT SCH ×4 (06:00→21:10)
[2017-12-08] MEDS: MEPERIDINE HCL (25 MG/ML) 1ML VIAL IV PRN ×2 (06:02→16:00)
[2017-12-08 06:26] LABS: Bilirubin, Total 1.2 mg/dL (0.2-1.0); Calcium 8.3 mg/dL (8.5-10.1); Magnesium 2.2 mg/dL (1.6-2.6); Phosphorus 2.6 mg/dL (2.5-4.90); Total Protein 6.9 g/dL (6.4-8.2)
[2017-12-08] MEDS: FLUCONAZOLE 200MG/100ML 100 ML IV SCH (09:55)
[2017-12-08] MEDS: ENOXAPARIN SOD 100 MG/1 ML SYRINGE SC SCH ×2 (09:55→21:11)
[2017-12-08] MEDS: PANTOPRAZOLE 40 MG/10 ML VIAL IV SCH ×2 (09:55→21:11)
[2017-12-08 10:27] LABS: INR 1.05 (0.9-1.15); Prothrombin Time 11.5 sec (9.37-12.3)
[2017-12-08] MEDS ORDERED: TPN PER PHARMACY IV NR ×11 (20:00)
[2017-12-08] MEDS: AMIODARONE HCL 900 MG in DEXTROSE 500 ML IV SCH (20:39)
[2017-12-08] MEDS: LINEZOLID 600MG/300ML 300 ML IV SCH (21:11)
[2017-12-08] MEDS: MORPHINE SULFATE 4 MG/ML SYR/VIAL IV PRN (21:11)
[2017-12-08] MEDS: FUROSEMIDE INJECTION 250 MG in D5W 5% 225 ML IV SCH (21:29)
[2017-12-08] MEDS: LORazepam 2MG/ML-1ML VIAL IV PRN (23:38)
[2017-12-09] VITALS (60 sets, daily range): BP systolic 63–159; BP diastolic 41–84
[2017-12-09] MEDS: IPRATROPIUM BROM 0.5 MG/2.5ML INH SOL NEB SCH ×4 (00:40→18:55)
[2017-12-09] MEDS: LEVALBUTEROL HCL 1.25 MG/3 ML NEB NEB SCH ×4 (00:40→18:55)
[2017-12-09] MEDS: ACETYLCYSTEINE 10 %(100MG/ML) SOL 4ML NEB SCH ×4 (00:40→18:55)
[2017-12-09] MEDS: METOPROLOL TARTRATE 1MG/1ML-5ML VIAL IV SCH ×3 (01:18→12:10)
[2017-12-09] MEDS: MORPHINE SULFATE 4 MG/ML SYR/VIAL IV PRN ×3 (03:57→21:31)
[2017-12-09] MEDS: DIGOXIN (250MCG/ML) 2 ML AMPULE IV SCH (04:06)
[2017-12-09 04:18] LABS: Basophils # (auto) 0.1 uL; Basophils % (auto) 0.4 % (0.0-2.0); Eosinophils # (auto) 0.1 uL; Eosinophils % (auto) 0.7 % (0.0-7.0); Hematocrit 25.9 % (41.0-53.0); Hemoglobin 9.1 g/dL (13.5-17.5); Lymphocytes # (auto) 0.7 uL; Lymphocytes % (auto) 5.1 % (10.0-50.0); Mean Corpuscular Hemoglobin 30.2 pg (28.0-32.0); Mean Corpuscular Volume 86.4 fL (80.0-100.0); Monocytes # (auto) 1.3 uL; Monocytes % (auto) 9.1 % (0.0-12.0); Neutrophils # (auto) 12.2 uL; Neutrophils % (auto) 84.7 % (37.0-80.0); Platelet Count (auto) 300 10^3/uL (140-450); Red Cell Distribution Width 15.8 % (11.8-14.3); White Blood Cell 14.5 10^3/uL (4.4-10.8)
[2017-12-09 04:26] LABS: INR 1.06 (0.9-1.15); Prothrombin Time 11.6 sec (9.37-12.3)
[2017-12-09 04:29] LABS: Albumin 2.8 g/dL (3.4-5.0); BUN/Creatinine Ratio 16.7; Calcium 8.2 mg/dL (8.5-10.1); Magnesium 2.4 mg/dL (1.6-2.6); Phosphorus 3.8 mg/dL (2.5-4.90); Potassium 3.7 mmol/L (3.5-5.1); Total Protein 6.9 g/dL (6.4-8.2)
[2017-12-09] MEDS: NYSTATIN (MOUTH-THROAT) 500,000 UNITS/5 ML SUSP MT SCH ×4 (06:12→21:30)
[2017-12-09] MEDS: PIPERACILLIN-TAZOB 3.375GM 100 ML IV SCH ×2 (06:13→12:09)
[2017-12-09] MEDS: INSULIN LANTUS (GLARGINE) 1 /0.01ml (100units/ml) SC SCH (06:13)
[2017-12-09] MEDS: InsuLIN REG 1unit/0.01ml Soln (100units/ml) SC SCH ×3 (06:14→18:14)
[2017-12-09] MEDS: ACCU-CHEK COMFORT CURVE STRIP VI SCH ×3 (06:14→18:13)
[2017-12-09] MEDS: POTASSIUM CHL 20MEQ/100ML 100 ML IV PRN (08:03)
[2017-12-09] MEDS: ENOXAPARIN SOD 100 MG/1 ML SYRINGE SC SCH ×2 (09:45→21:30)
[2017-12-09] MEDS: PANTOPRAZOLE 40 MG/10 ML VIAL IV SCH ×2 (10:13→21:31)
[2017-12-09] MEDS: FLUCONAZOLE 200MG/100ML 100 ML IV SCH (10:13)
[2017-12-09] MEDS: LINEZOLID 600MG/300ML 300 ML IV SCH ×2 (10:14→23:37)
[2017-12-09] MEDS ORDERED: SODIUM CHLORIDE 0.9% 250 ML IV ONE (14:15)
[2017-12-09] MEDS: LORazepam 2MG/ML-1ML VIAL IV PRN (14:18)
[2017-12-09] MEDS ORDERED: IODIXANOL 320MG/ML 100ML BTL IV ONE (14:19)
[2017-12-09] MEDS ORDERED: LIDOCAINE HCL 2 %PF INJ 10ML AMP IJ ONE (14:20)
[2017-12-09] MEDS ORDERED: LIDOCAINE 1% HCL (LOCAL ANESTH.) INJ 20ML MDV ID ONE (14:30)
[2017-12-09] MEDS ORDERED: diphenhdrAMINE HCL 50 MG/1 ML VL ONE (15:15)
[2017-12-09] MEDS ORDERED: VANCOMYCIN HCL 1000 MG VL ONE (15:28)
[2017-12-09] MEDS ORDERED: BACITRACIN INJ 50000 UNIT VIAL ONE (15:28)
[2017-12-09] MEDS ORDERED: MIDAZOLAM HCL 1MG/1ML-2 ML VIAL ONE (15:46)
[2017-12-09] MEDS ORDERED: PROPOFOL 100 ML IV ONE (15:53)
[2017-12-09] MEDS: PROPOFOL 100 ML IV SCH (16:00)
[2017-12-09] MEDS: NOREPINEPHRINE 8 MG/250ML KIT 250 ML IV SCH (16:15)
[2017-12-09] MEDS: MEROPENEM 1gm/20ml IVPUSH 20 ML IV SCH (18:14)
[2017-12-09] MEDS: FUROSEMIDE INJECTION 250 MG in D5W 5% 225 ML IV SCH ×2 (19:30→22:00)
[2017-12-09] MEDS ORDERED: TPN PER PHARMACY IV NR ×11 (20:00)
[2017-12-09] MEDS: SODIUM CHLOR 0.9% PF (SALINE LOCK) 10ML VIAL IV SCH (21:30)
[2017-12-10] VITALS (102 sets, daily range): BP systolic 83–155; BP diastolic 40–78
[2017-12-10] MEDS: METOPROLOL TARTRATE 1MG/1ML-5ML VIAL IV SCH ×4 (00:27→18:30)
[2017-12-10] MEDS: ACCU-CHEK COMFORT CURVE STRIP VI SCH ×4 (00:27→18:30)
[2017-12-10] MEDS: InsuLIN REG 1unit/0.01ml Soln (100units/ml) SC SCH ×4 (00:27→18:46)
[2017-12-10] MEDS: MEROPENEM 1gm/20ml IVPUSH 20 ML IV SCH ×3 (00:39→18:00)
[2017-12-10] MEDS: IPRATROPIUM BROM 0.5 MG/2.5ML INH SOL NEB SCH ×3 (00:42→18:58)
[2017-12-10] MEDS: LEVALBUTEROL HCL 1.25 MG/3 ML NEB NEB SCH ×3 (00:42→18:58)
[2017-12-10] MEDS: ACETYLCYSTEINE 10 %(100MG/ML) SOL 4ML NEB SCH ×3 (00:42→18:58)
[2017-12-10] MEDS: PROPOFOL 100 ML IV SCH ×2 (02:24→21:00)
[2017-12-10] MEDS: AMIODARONE HCL 900 MG in DEXTROSE 500 ML IV SCH ×2 (02:25→18:00)
[2017-12-10 04:11] LABS: Urine Bacteria NONE SEEN /hpf (None Seen); Urine Blood 2+ /uL (Negative); Urine Budding Yeast FEW /hpf (None Seen); Urine Hyaline Cast FEW /lpf (0 - 2); Urine Mucus FEW (None Seen); Urine Specific Gravity 1.018 (1.001-1.035); Urine WBC 12 /hpf (0 - 3)
[2017-12-10 05:20] LABS: Albumin 2.6 g/dL (3.4-5.0); BUN/Creatinine Ratio 21.9; Bilirubin, Total 1.1 mg/dL (0.2-1.0); Calcium 7.1 mg/dL (8.5-10.1); Magnesium 2.3 mg/dL (1.6-2.6); Phosphorus 3.2 mg/dL (2.5-4.90); Potassium 4.2 mmol/L (3.5-5.1); Pre Albumin 10.7 mg/dL (20.0-40.0); Total Protein 6.4 g/dL (6.4-8.2)
[2017-12-10] MEDS: INSULIN LANTUS (GLARGINE) 1 /0.01ml (100units/ml) SC SCH (05:49)
[2017-12-10] MEDS: NYSTATIN (MOUTH-THROAT) 500,000 UNITS/5 ML SUSP MT SCH ×4 (05:49→22:38)
[2017-12-10 07:39] LABS: Basophils # (auto) 0.1 uL; Basophils % (auto) 0.4 % (0.0-2.0); Eosinophils # (auto) 0.1 uL; Eosinophils % (auto) 0.5 % (0.0-7.0); Hemoglobin 8.6 g/dL (13.5-17.5); Lymphocytes # (auto) 0.7 uL; Lymphocytes % (auto) 4.4 % (10.0-50.0); Mean Corpuscular Hemoglobin 30.2 pg (28.0-32.0); Mean Corpuscular Hgb Conc. 34.5 g/dL (32.0-36.0); Mean Corpuscular Volume 87.6 fL (80.0-100.0); Monocytes # (auto) 1.7 uL; Monocytes % (auto) 10.5 % (0.0-12.0); Neutrophils # (auto) 13.3 uL; Neutrophils % (auto) 84.2 % (37.0-80.0); Platelet Count (auto) 338 10^3/uL (140-450); Red Blood Cells 2.85 10^6/uL (4.5-5.90); Red Cell Distribution Width 15.5 % (11.8-14.3); White Blood Cell 15.8 10^3/uL (4.4-10.8)
[2017-12-10] MEDS: PANTOPRAZOLE 40 MG/10 ML VIAL IV SCH ×2 (09:49→22:38)
[2017-12-10] MEDS: FLUCONAZOLE 200MG/100ML 100 ML IV SCH (09:49)
[2017-12-10] MEDS: SODIUM CHLOR 0.9% PF (SALINE LOCK) 10ML VIAL IV SCH ×2 (09:49→22:38)
[2017-12-10] MEDS: LINEZOLID 600MG/300ML 300 ML IV SCH ×2 (09:50→22:38)
[2017-12-10] MEDS: ENOXAPARIN SOD 100 MG/1 ML SYRINGE SC SCH (10:00)
[2017-12-10] MEDS ORDERED: POTASSIUM CHL 10% (20 MEQ/15ML) 15ml ORAL SOLN GT ONE (11:15)
[2017-12-10] MEDS ORDERED: FUROSEMIDE 40 MG/4 ML VIAL IV ONE (11:15)
[2017-12-10] MEDS ORDERED: PROMETHAZINE HCL 25 MG/ML 1ML IV PRN (13:15)
[2017-12-10] MEDS ORDERED: MAGNESIUM SULFATE 1GM/100ML 100 ML IV PRN (13:15)
[2017-12-10] MEDS ORDERED: POTASSIUM CHL 20MEQ/100ML 100 ML IV PRN (13:15)
[2017-12-10] MEDS ORDERED: NITROGLYCERIN 0.4 MG SL TAB SL PRN (13:15)
[2017-12-10] MEDS ORDERED: CLOPIDOGREL BISULFATE 75 MG TAB NG ONE (13:15)
[2017-12-10] MEDS: FUROSEMIDE INJECTION 250 MG in D5W 5% 225 ML IV SCH (15:00)
[2017-12-10] MEDS: NOREPINEPHRINE 8 MG/250ML KIT 250 ML IV SCH (16:00)
[2017-12-10] MEDS ORDERED: TPN PER PHARMACY IV NR ×11 (20:00)
[2017-12-11] MEDS ORDERED: CLOPIDOGREL BISULFATE 75 MG TAB NG SCH (10:00)
== END 2017-12-10 23:10 | disposition short-term general hospital (02) | DRG 207 ==
LOC: ER 13:35 → ICU WEST 13:36
PROVIDERS: ADMIT Internal Medicine; ATTEND Internal Medicine
PROC: 5A12012 Performance of Cardiac Output, Single, Manual (ICD-10-PCS; principal; 2017-11-27)
PROC: 5A1955Z Respiratory Ventilation, Greater than 96 Consecutive Hours (ICD-10-PCS; 2017-11-27)
PROC: 0BH17EZ Insertion of Endotracheal Airway into Trachea, Via Natural or Artificial Opening (ICD-10-PCS; 2017-11-27)
PROC: 30233N1 Transfusion of Nonautologous Red Blood Cells into Peripheral Vein, Percutaneous Approach (ICD-10-PCS; 2017-11-30)
PROC: 0W993ZZ Drainage of Right Pleural Cavity, Percutaneous Approach (ICD-10-PCS; 2017-12-03)
PROC: 02HV33Z Insertion of Infusion Device into Superior Vena Cava, Percutaneous Approach (ICD-10-PCS; 2017-12-09)
DX: J96.01 Acute respiratory failure with hypoxia (principal); I21.4 Non-ST elevation (NSTEMI) myocardial infarction; I49.01 Ventricular fibrillation; B37.1 Pulmonary candidiasis; J15.212 Pneumonia due to Methicillin resistant Staphylococcus aureus; G93.1 Anoxic brain damage, not elsewhere classified; J69.0 Pneumonitis due to inhalation of food and vomit; R57.0 Cardiogenic shock; K66.1 Hemoperitoneum; G93.41 Metabolic encephalopathy; E87.2 Acidosis; D68.9 Coagulation defect, unspecified; E44.1 Mild protein-calorie malnutrition; J93.9 Pneumothorax, unspecified; S22.31XA Fracture of one rib, right side, initial encounter for closed fracture; X58.XXXA Exposure to other specified factors, initial encounter; Y93.89 Activity, other specified; Y92.238 Other place in hospital as the place of occurrence of the external cause; I11.0 Hypertensive heart disease with heart failure; D64.9 Anemia, unspecified; E03.9 Hypothyroidism, unspecified; E11.9 Type 2 diabetes mellitus without complications; E07.81 Sick-euthyroid syndrome; E78.5 Hyperlipidemia, unspecified; I25.10 Atherosclerotic heart disease of native coronary artery without angina pectoris; I25.2 Old myocardial infarction; I25.5 Ischemic cardiomyopathy; I48.91 Unspecified atrial fibrillation; I50.9 Heart failure, unspecified; I67.2 Cerebral atherosclerosis; E66.9 Obesity, unspecified; I70.8 Atherosclerosis of other arteries; K40.90 Unilateral inguinal hernia, without obstruction or gangrene, not specified as recurrent; Z79.01 Long term (current) use of anticoagulants; Z79.02 Long term (current) use of antithrombotics/antiplatelets; Z86.73 Personal history of transient ischemic attack (TIA), and cerebral infarction without residual deficits; Z87.891 Personal history of nicotine dependence; Z95.5 Presence of coronary angioplasty implant and graft
CPT/HCPCS: 31500; 32555; 36415; 36556; 36569; 36600; 51702; 70450; 71045; 71250; 72125; 73502; 74176; 76604; 76942; 80048; 80053; 80061; 80162; 80202; 81001; 82040; 82270; 82550; 82805; 82962; 83036; 83605; 83615; 83735; 83880; 84100; 84132; 84439; 84443; 84478; 84481; 84484; 85025; 85610; 85652; 85730; 86141; 86850; 86900; 86901; 86920; 87040; 87070; 87077; 87081; 87086; 87186; 87205; 87804; 89051; 92610; 92950; 93005; 93306; 94002; 94003; 94640; 95819; 96361; 96365; 96375; 96379; 99291; A4565; C9113; J0610; J1450; J1815; J1956; J2250; J2543; J2704; J3480; J3490; J7060; J7131; Q9956; Q9967

== ENCOUNTER 2018-07-18 04:32 | Inpatient (IN) | payer MEDICARE, OTHER ==
[2018-07-18] VITALS (13 sets, daily range): BP systolic 82–122; BP diastolic 54–86
[~2018-07-18] VITALS: Ht 182.9 cm; Wt 88.0 kg
[~2018-07-18 04:32] MED LIST changes: +ASP81EC PO; +ATOR1TAB PO; +CARV12.544 PO; +CLOP75TA28 PO; +FURO20TA3 PO; +LISI-275 PO; +METF-370 PO; -SODIUM CHLORIDE 0.9% 1,000 ML IV ONE; +SPIR25TA8 PO
[2018-07-18] MEDS ORDERED: EPINEPHrine HCL 0.5 ML NEB ONE (04:42)
[2018-07-18 05:55] LABS: Eosinophils # (auto) 0.1 uL; Lymphocytes # (auto) 0.6 uL; Mean Corpuscular Hemoglobin 33.7 pg (28.0-32.0); Mean Corpuscular Hgb Conc. 32.9 g/dL (32.0-36.0); Monocytes # (auto) 0.6 uL; Nucleated Red Blood Cells % 0.1 %
[2018-07-18 05:58] LABS: Basophils # (auto) 0 uL; Basophils % (auto) 0.6 % (0.0-2.0); Eosinophils % (auto) 2.1 % (0.0-7.0); Hematocrit 31.2 % (41.0-53.0); Hemoglobin 10.3 g/dL (13.5-17.5); Lymphocytes % (auto) 12.5 % (10.0-50.0); Mean Corpuscular Volume 102.4 fL (80.0-100.0); Monocytes % (auto) 11.6 % (0.0-12.0); Neutrophils # (auto) 3.7 uL; Neutrophils % (auto) 73.2 % (37.0-80.0); Platelet Count (auto) 191 10^3/uL (140-450); Red Blood Cells 3.05 10^6/uL (4.5-5.90)
[2018-07-18 06:03] LABS: Red Cell Distribution Width 20.9 % (11.8-14.3)
[2018-07-18 06:09] LABS: Albumin 2.6 g/dL (3.4-5.0); Calcium 8.1 mg/dL (8.5-10.1); Magnesium 2.8 mg/dL (1.6-2.6); Potassium 4.2 mmol/L (3.5-5.1)
[2018-07-18 06:16] LABS: BUN/Creatinine Ratio 41.4; Bilirubin, Total 0.7 mg/dL (0.2-1.0); Total Protein 6.8 g/dL (6.4-8.2)
[2018-07-18 06:52] LABS: INR 1.15 (0.9-1.15); Partial Thromboplastin Time 27.1 sec (23.78-33.04); Prothrombin Time 12.2 sec (9.27-12.13)
[2018-07-18] MEDS ORDERED: SODIUM CHLORIDE 0.9% 1,000 ML IV ONE (06:59)
[2018-07-18] MEDS ORDERED: FUROSEMIDE 40 MG/4 ML VIAL IV ONE (07:00)
[2018-07-18] MEDS ORDERED: LEVOTHYROXINE SODIUM 100 MCG/5 ML INJ IV ONE (07:00)
[2018-07-18] MEDS ORDERED: NITROGLYCERIN 0.4 MG SL TAB SL PRN (09:00)
[2018-07-18] MEDS ORDERED: MORPHINE SULFATE 4 MG/ML SYR/VIAL IV PRN ×2 (09:00)
[2018-07-18] MEDS ORDERED: DEXTROSE (50%) 50ML SYRG IV PRN (09:00)
[2018-07-18] MEDS ORDERED: ALBUTEROL SULF 2.5 MG/0.5ML(0.5%) NEB SOLN NEB PRN (09:00)
[2018-07-18 09:16] LABS: Urine Bacteria NONE SEEN /hpf (None Seen); Urine Blood Negative /uL (Negative); Urine Specific Gravity 1.012 (1.001-1.035); Urine WBC 1 /hpf (0 - 3)
[2018-07-18] MEDS ORDERED: IOHEXOL 350 MG/ML 100ML IJ ONE (09:53)
[2018-07-18] MEDS ORDERED: PATIENTS OWN MEDICATION (Lisinopril 5 MG) PO SCH (10:00)
[2018-07-18] MEDS: SPIRONOLACTONE 25 MG TAB PO SCH (10:00)
[2018-07-18] MEDS ORDERED: Glucerna 1.2 Cal 1Liter BOTTLE GT SCH (10:00)
[2018-07-18] MEDS ORDERED: PATIENTS OWN MEDICATION (Atorvastatin Calcium 1 TAB) PO SCH (10:00)
[2018-07-18] MEDS ORDERED: POTASSIUM CHL 20 Meq TABLET PO SCH (10:00)
[2018-07-18] MEDS: CLOPIDOGREL BISULFATE 75 MG TAB PO SCH (10:00)
[2018-07-18] MEDS: CARVEDILOL 12.5 MG TAB PO SCH ×2 (11:11→22:00)
[2018-07-18] MEDS: LISINOPRIL 5 MG TAB PO SCH (11:12)
[2018-07-18] MEDS: NITROGLYCERIN 0.2MG/HR TOPICAL PATCH TD SCH (11:12)
[2018-07-18] MEDS: InsuLIN REG 1unit/0.01ml Soln (100units/ml) SC SCH ×3 (11:30→22:30)
[2018-07-18] MEDS: ACCU-CHEK COMFORT CURVE STRIP VI SCH ×3 (11:30→22:30)
[2018-07-18] MEDS ORDERED: IPRATROPIUM BROM 0.5 MG/2.5ML INH SOL NEB SCH (12:00)
[2018-07-18] MEDS ORDERED: ALBUTEROL SULF 2.5 MG/0.5ML(0.5%) NEB SOLN NEB SCH (12:00)
[2018-07-18] MEDS ORDERED: methylPREDNISolone SOD SUCC 40 MG/ML VL IV ONE (13:30)
[2018-07-18] MEDS: ALBUTEROL SULF 2.5 MG/0.5ML(0.5%) NEB SOLN NEB SCH ×3 (14:00→21:48)
[2018-07-18] MEDS: SODIUM CHLOR 0.9% PF (SALINE LOCK) 10ML VIAL/SYR IV SCH ×2 (14:58→22:28)
[2018-07-18] MEDS: DOXYCYCLINE 100MG/250ML 250 ML IV SCH ×2 (14:58→20:33)
[2018-07-18] MEDS: VALPROIC ACID 250 MG/5 ML ORAL SOLN GT SCH ×2 (14:59→22:29)
[2018-07-18] MEDS: PANTOPRAZOLE 40 MG/10 ML VIAL IV SCH (14:59)
[2018-07-18] MEDS: FLORASTOR (S. BOULARDII) 250 MG CAP PO SCH (17:12)
[2018-07-18] MEDS: FUROSEMIDE 40 MG/4 ML VIAL IV SCH (17:12)
[2018-07-18] MEDS: MORPHINE SULFATE 4 MG/ML SYR/VIAL IV PRN (17:23)
[2018-07-18] MEDS: IPRATROPIUM BROM 0.5 MG/2.5ML INH SOL NEB SCH ×2 (18:38→21:48)
[2018-07-18] MEDS: methylPREDNISolone SOD SUCC 40 MG/ML VL IV SCH (22:28)
[2018-07-18] MEDS: ATORVASTATIN 20 MG TAB PO SCH (22:29)
[2018-07-18] MEDS: QUEtiapine FUMARATE 100 MG TAB PEG SCH (22:29)
[2018-07-19] VITALS (19 sets, daily range): BP systolic 87–120; BP diastolic 52–71
[2018-07-19] MEDS: IPRATROPIUM BROM 0.5 MG/2.5ML INH SOL NEB SCH ×6 (01:32→22:08)
[2018-07-19] MEDS: ALBUTEROL SULF 2.5 MG/0.5ML(0.5%) NEB SOLN NEB SCH ×6 (01:32→22:08)
[2018-07-19 05:59] LABS: Basophils # (auto) 0 uL; Eosinophils # (auto) 0 uL; Eosinophils % (auto) 0.1 % (0.0-7.0); Hematocrit 32.4 % (41.0-53.0); Hemoglobin 10.7 g/dL (13.5-17.5); Lymphocytes # (auto) 0.2 uL; Lymphocytes % (auto) 3.1 % (10.0-50.0); Mean Corpuscular Hemoglobin 33.8 pg (28.0-32.0); Mean Corpuscular Hgb Conc. 33.1 g/dL (32.0-36.0); Mean Corpuscular Volume 102.1 fL (80.0-100.0); Monocytes # (auto) 0.1 uL; Monocytes % (auto) 1.5 % (0.0-12.0); Neutrophils # (auto) 4.7 uL; Neutrophils % (auto) 95.3 % (37.0-80.0); Nucleated Red Blood Cells % 0.1 %; Platelet Count (auto) 173 10^3/uL (140-450); Red Blood Cells 3.17 10^6/uL (4.5-5.90); Red Cell Distribution Width 19.9 % (11.8-14.3); White Blood Cell 4.9 10^3/uL (4.4-10.8)
[2018-07-19 06:19] LABS: Cholesterol 83 mg/dL (< 200)
[2018-07-19] MEDS: FUROSEMIDE 40 MG/4 ML VIAL IV SCH ×2 (06:19→18:17)
[2018-07-19] MEDS: SODIUM CHLOR 0.9% PF (SALINE LOCK) 10ML VIAL/SYR IV SCH ×3 (06:19→21:47)
[2018-07-19 06:20] LABS: Albumin 2.5 g/dL (3.4-5.0); Calcium 8.2 mg/dL (8.5-10.1); Potassium 4.4 mmol/L (3.5-5.1)
[2018-07-19] MEDS: ACCU-CHEK COMFORT CURVE STRIP VI SCH ×4 (06:20→21:47)
[2018-07-19 06:21] LABS: HDL Cholesterol 47 mg/dL (40-59); LDL Cholesterol 39 mg/dL (< 100); Triglycerides 54 mg/dL (< 150)
[2018-07-19] MEDS: InsuLIN REG 1unit/0.01ml Soln (100units/ml) SC SCH ×4 (06:21→21:47)
[2018-07-19] MEDS: LEVOTHYROXINE SODIUM 50 MCG TAB PEG SCH (06:26)
[2018-07-19 06:28] LABS: BUN/Creatinine Ratio 32.4; Bilirubin, Total 0.8 mg/dL (0.2-1.0); Total Protein 6.7 g/dL (6.4-8.2)
[2018-07-19] MEDS ORDERED: Glucerna 1.2 Cal 1Liter BOTTLE GT SCH (08:30)
[2018-07-19] MEDS: FLORASTOR (S. BOULARDII) 250 MG CAP PO SCH ×2 (09:28→18:17)
[2018-07-19] MEDS: SPIRONOLACTONE 25 MG TAB PO SCH (09:29)
[2018-07-19] MEDS: DOXYCYCLINE 100MG/250ML 250 ML IV SCH ×2 (09:29→21:46)
[2018-07-19] MEDS: PANTOPRAZOLE 40 MG/10 ML VIAL IV SCH (09:29)
[2018-07-19] MEDS: CARVEDILOL 12.5 MG TAB PO SCH ×2 (09:29→21:06)
[2018-07-19] MEDS: CLOPIDOGREL BISULFATE 75 MG TAB PO SCH (09:29)
[2018-07-19] MEDS: LISINOPRIL 5 MG TAB PO SCH (09:30)
[2018-07-19] MEDS: NITROGLYCERIN 0.2MG/HR TOPICAL PATCH TD SCH ×2 (09:30→09:52)
[2018-07-19] MEDS: VALPROIC ACID 250 MG/5 ML ORAL SOLN GT SCH ×2 (09:31→21:46)
[2018-07-19] MEDS: methylPREDNISolone SOD SUCC 40 MG/ML VL IV SCH ×2 (09:32→21:47)
[2018-07-19] MEDS: POTASSIUM EFFERVESENT TAB 25 MEQ GT SCH (09:52)
[2018-07-19] MEDS ORDERED: FUROSEMIDE 40 MG/4 ML VIAL IV SCH (10:00)
[2018-07-19] MEDS: MORPHINE SULFATE 4 MG/ML SYR/VIAL IV PRN (17:08)
[2018-07-19] MEDS: ATORVASTATIN 20 MG TAB PO SCH (21:47)
[2018-07-19] MEDS: QUEtiapine FUMARATE 100 MG TAB PEG SCH (21:47)
[2018-07-20] VITALS: BP 94/60
[2018-07-20] MEDS: ALBUTEROL SULF 2.5 MG/0.5ML(0.5%) NEB SOLN NEB SCH ×3 (02:16→10:34)
[2018-07-20] MEDS: IPRATROPIUM BROM 0.5 MG/2.5ML INH SOL NEB SCH ×6 (02:16→22:33)
[2018-07-20 04:00] VITALS: BP 110/63
[2018-07-20] MEDS: ACCU-CHEK COMFORT CURVE STRIP VI SCH ×4 (06:24→22:00)
[2018-07-20] MEDS: SODIUM CHLOR 0.9% PF (SALINE LOCK) 10ML VIAL/SYR IV SCH ×3 (06:25→22:35)
[2018-07-20] MEDS: FUROSEMIDE 40 MG/4 ML VIAL IV SCH ×2 (06:30→18:15)
[2018-07-20] MEDS: LEVOTHYROXINE SODIUM 50 MCG TAB PEG SCH (06:30)
[2018-07-20] MEDS: InsuLIN REG 1unit/0.01ml Soln (100units/ml) SC SCH ×4 (06:30→22:33)
[2018-07-20 07:50] VITALS: BP 124/80
[2018-07-20] MEDS ORDERED: IOHEXOL 350 MG/ML 100ML IJ ONE (08:02)
[2018-07-20] MEDS: FLORASTOR (S. BOULARDII) 250 MG CAP PO SCH ×2 (08:41→18:15)
[2018-07-20] MEDS: DOXYCYCLINE 100MG/250ML 250 ML IV SCH ×2 (09:54→21:39)
[2018-07-20] MEDS ORDERED: CLOPIDOGREL BISULFATE 75 MG TAB PO SCH (10:00)
[2018-07-20] MEDS: LISINOPRIL 5 MG TAB PO SCH (10:00)
[2018-07-20] MEDS: SPIRONOLACTONE 25 MG TAB PO SCH (10:00)
[2018-07-20 10:01] LABS: Free T4 (Free Thyroxine) 0.91 ng/dL (0.89-1.76)
[2018-07-20 10:02] LABS: Free T3 2.14 pg/mL (2.3-4.2)
[2018-07-20] MEDS: PANTOPRAZOLE 40 MG/10 ML VIAL IV SCH (11:02)
[2018-07-20] MEDS: methylPREDNISolone SOD SUCC 40 MG/ML VL IV SCH ×2 (11:03→22:34)
[2018-07-20] MEDS: POTASSIUM EFFERVESENT TAB 25 MEQ GT SCH (11:03)
[2018-07-20] MEDS: CARVEDILOL 12.5 MG TAB PO SCH ×3 (11:17→23:05)
[2018-07-20] MEDS: VALPROIC ACID 250 MG/5 ML ORAL SOLN GT SCH ×2 (11:54→21:47)
[2018-07-20 11:55] VITALS: BP 112/73
[2018-07-20 15:43] VITALS: BP 116/70
[2018-07-20 19:50] VITALS: BP 97/57
[2018-07-20] MEDS: ATORVASTATIN 20 MG TAB PO SCH (21:47)
[2018-07-20] MEDS: QUEtiapine FUMARATE 100 MG TAB PEG SCH (22:34)
[2018-07-21] VITALS (7 sets, daily range): BP systolic 93–121; BP diastolic 52–78
[2018-07-21] MEDS: IPRATROPIUM BROM 0.5 MG/2.5ML INH SOL NEB SCH ×6 (01:56→22:02)
[2018-07-21] MEDS: FUROSEMIDE 40 MG/4 ML VIAL IV SCH ×2 (05:52→18:01)
[2018-07-21] MEDS: SODIUM CHLOR 0.9% PF (SALINE LOCK) 10ML VIAL/SYR IV SCH ×3 (05:53→21:06)
[2018-07-21] MEDS: InsuLIN REG 1unit/0.01ml Soln (100units/ml) SC SCH ×4 (05:54→21:08)
[2018-07-21] MEDS: ACCU-CHEK COMFORT CURVE STRIP VI SCH ×4 (05:55→21:07)
[2018-07-21] MEDS: LEVOTHYROXINE SODIUM 50 MCG TAB PEG SCH (06:42)
[2018-07-21] MEDS: LISINOPRIL 5 MG TAB PO SCH (10:00)
[2018-07-21] MEDS: CARVEDILOL 12.5 MG TAB PO SCH ×3 (10:00→21:07)
[2018-07-21] MEDS: SPIRONOLACTONE 25 MG TAB PO SCH (10:00)
[2018-07-21] MEDS: DOXYCYCLINE 100MG/250ML 250 ML IV SCH (10:23)
[2018-07-21] MEDS: methylPREDNISolone SOD SUCC 40 MG/ML VL IV SCH ×2 (10:24→21:06)
[2018-07-21] MEDS: PANTOPRAZOLE 40 MG/10 ML VIAL IV SCH (10:24)
[2018-07-21] MEDS: POTASSIUM EFFERVESENT TAB 25 MEQ GT SCH (10:24)
[2018-07-21] MEDS: VALPROIC ACID 250 MG/5 ML ORAL SOLN GT SCH ×2 (10:25→21:06)
[2018-07-21] MEDS: FLORASTOR (S. BOULARDII) 250 MG CAP PO SCH ×2 (10:25→17:57)
[2018-07-21] MEDS ORDERED: LEVO750T64 PEG (13:25)
[2018-07-21] MEDS ORDERED: FURO40TA4 PO (13:28)
[2018-07-21] MEDS ORDERED: POTA1TAB61 PEG (13:28)
[2018-07-21] MEDS ORDERED: LEVOFLOXACIN 750MG 150 ML IV ONE (13:30)
[2018-07-21] MEDS ORDERED: LIDOCAINE 1% (LOCAL ANESTH.) PF 5ml SDV ONE (14:15)
[2018-07-21] MEDS ORDERED: LIDOCAINE 2% (LOCAL ANESTH.) PF 5ml SDV ONE (14:27)
[2018-07-21] MEDS ORDERED: AMIODARONE HCL 200 MG TAB PO ONE (17:30)
[2018-07-21] MEDS: ATORVASTATIN 20 MG TAB PO SCH (21:07)
[2018-07-21] MEDS: QUEtiapine FUMARATE 100 MG TAB PEG SCH (21:07)
[2018-07-22] VITALS: BP 102/47
[2018-07-22] MEDS: IPRATROPIUM BROM 0.5 MG/2.5ML INH SOL NEB SCH ×4 (02:06→14:48)
[2018-07-22 04:00] VITALS: BP 105/62
[2018-07-22] MEDS: SODIUM CHLOR 0.9% PF (SALINE LOCK) 10ML VIAL/SYR IV SCH ×2 (05:39→14:05)
[2018-07-22] MEDS: FUROSEMIDE 40 MG/4 ML VIAL IV SCH (05:39)
[2018-07-22] MEDS: LEVOTHYROXINE SODIUM 50 MCG TAB PEG SCH (05:40)
[2018-07-22] MEDS: InsuLIN REG 1unit/0.01ml Soln (100units/ml) SC SCH ×2 (05:40→12:48)
[2018-07-22] MEDS: ACCU-CHEK COMFORT CURVE STRIP VI SCH ×2 (05:40→12:10)
[2018-07-22 08:00] VITALS: BP 115/83
[2018-07-22] MEDS ORDERED: MORPHINE SULFATE 4 MG/ML SYR/VIAL IV PRN ×3 (09:30)
[2018-07-22 09:56] LABS: Basophils # (auto) 0 uL; Basophils % (auto) 0.2 % (0.0-2.0); Eosinophils # (auto) 0 uL; Hematocrit 36.9 % (41.0-53.0); Hemoglobin 11.8 g/dL (13.5-17.5); Lymphocytes # (auto) 0.2 uL; Lymphocytes % (auto) 2.4 % (10.0-50.0); Mean Corpuscular Hemoglobin 32.3 pg (28.0-32.0); Mean Corpuscular Volume 100.8 fL (80.0-100.0); Monocytes # (auto) 0.7 uL; Monocytes % (auto) 9.3 % (0.0-12.0); Neutrophils # (auto) 6.6 uL; Neutrophils % (auto) 88.1 % (37.0-80.0); Platelet Count (auto) 183 10^3/uL (140-450); Red Blood Cells 3.66 10^6/uL (4.5-5.90); Red Cell Distribution Width 19.4 % (11.8-14.3); White Blood Cell 7.5 10^3/uL (4.4-10.8)
[2018-07-22] MEDS: LISINOPRIL 5 MG TAB PO SCH (10:00)
[2018-07-22] MEDS ORDERED: AMIODARONE HCL 200 MG TAB PO SCH (10:00)
[2018-07-22] MEDS ORDERED: LEVOFLOXACIN 750MG 150 ML IV SCH (10:00)
[2018-07-22 10:14] LABS: BUN/Creatinine Ratio 44.1; Calcium 8.1 mg/dL (8.5-10.1); Potassium 4.5 mmol/L (3.5-5.1)
[2018-07-22] MEDS: PANTOPRAZOLE 40 MG/10 ML VIAL IV SCH (11:02)
[2018-07-22] MEDS: methylPREDNISolone SOD SUCC 40 MG/ML VL IV SCH (11:02)
[2018-07-22] MEDS: SPIRONOLACTONE 25 MG TAB PO SCH (11:03)
[2018-07-22] MEDS: FLORASTOR (S. BOULARDII) 250 MG CAP PO SCH (11:03)
[2018-07-22] MEDS: VALPROIC ACID 250 MG/5 ML ORAL SOLN GT SCH (11:03)
[2018-07-22] MEDS: CARVEDILOL 12.5 MG TAB PO SCH (11:05)
[2018-07-22] MEDS: POTASSIUM EFFERVESENT TAB 25 MEQ GT SCH (11:05)
[2018-07-22] MEDS ORDERED: AMI200T PO (11:28)
[2018-07-22] MEDS ORDERED: CLOPIDOGREL BISULFATE 75 MG TAB PEG ONE (11:30)
[2018-07-22 11:50] VITALS: BP 101/70
[2018-07-22 12:01] VITALS: BP 101/70
[2018-07-22 15:45] VITALS: BP 106/77
== END 2018-07-22 16:52 | disposition home health service (06) | DRG 919 ==
LOC: ER 04:32 → EDBD 04:32 → OVERFLOW 09:08 → TELE-EAST 11:49 → DOU IN ICU 13:58
PROVIDERS: ADMIT Internal Medicine; ATTEND Internal Medicine
PROC: 0W993ZZ Drainage of Right Pleural Cavity, Percutaneous Approach (ICD-10-PCS; principal; 2018-07-20)
PROC: 0W9B3ZZ Drainage of Left Pleural Cavity, Percutaneous Approach (ICD-10-PCS; 2018-07-21)
DX: T85.628A Displacement of other specified internal prosthetic devices, implants and grafts, initial encounter (principal); I50.43 Acute on chronic combined systolic (congestive) and diastolic (congestive) heart failure; J96.21 Acute and chronic respiratory failure with hypoxia; E43 Unspecified severe protein-calorie malnutrition; I49.01 Ventricular fibrillation; J96.22 Acute and chronic respiratory failure with hypercapnia; J18.9 Pneumonia, unspecified organism; G93.1 Anoxic brain damage, not elsewhere classified; J44.1 Chronic obstructive pulmonary disease with (acute) exacerbation; N39.0 Urinary tract infection, site not specified; J95.03 Malfunction of tracheostomy stoma; J95.01 Hemorrhage from tracheostomy stoma; E11.9 Type 2 diabetes mellitus without complications; D63.8 Anemia in other chronic diseases classified elsewhere; Z95.810 Presence of automatic (implantable) cardiac defibrillator; E03.9 Hypothyroidism, unspecified; Z68.26 Body mass index [BMI] 26.0-26.9, adult; Z88.8 Allergy status to other drugs, medicaments and biological substances; E78.5 Hyperlipidemia, unspecified; I11.0 Hypertensive heart disease with heart failure; I25.10 Atherosclerotic heart disease of native coronary artery without angina pectoris; I25.5 Ischemic cardiomyopathy; I48.91 Unspecified atrial fibrillation; Z82.49 Family history of ischemic heart disease and other diseases of the circulatory system; Z83.3 Family history of diabetes mellitus; Z86.73 Personal history of transient ischemic attack (TIA), and cerebral infarction without residual deficits; Z87.891 Personal history of nicotine dependence; Z95.5 Presence of coronary angioplasty implant and graft; Z79.82 Long term (current) use of aspirin; Z79.899 Other long term (current) drug therapy; L89.150 Pressure ulcer of sacral region, unstageable; L89.300 Pressure ulcer of unspecified buttock, unstageable; Y83.9 Surgical procedure, unspecified as the cause of abnormal reaction of the patient, or of later complication, without mention of misadventure at the time of the procedure
CPT/HCPCS: 10022; 36415; 36600; 51702; 71045; 71275; 76604; 76942; 80048; 80053; 80061; 81001; 82550; 82805; 82962; 83036; 83735; 83880; 84439; 84443; 84481; 84484; 85025; 85379; 85610; 85730; 87081; 87804; 93005; 93306; 93971; 94640; 94761; 96374; 96375; A4605; C9113; G0378; J1815; J1956; J2001; J3490

== ENCOUNTER → 2018-08-11 | Outpatient (CLI) | payer MEDICARE, OTHER ==
[~2018-08-11] MED LIST changes: +AMI200T PO; -FURO20TA3 PO; +FURO40TA4 PO; +LEVO750T64 PEG; +POTA1TAB61 PEG
== END | disposition home or self-care (01) ==
LOC: US 09:03
PROVIDERS: ATTEND Specialist
DX: J90 Pleural effusion, not elsewhere classified (principal); Z53.8 Procedure and treatment not carried out for other reasons; I70.0 Atherosclerosis of aorta; I50.9 Heart failure, unspecified; J44.9 Chronic obstructive pulmonary disease, unspecified; F10.99 Alcohol use, unspecified with unspecified alcohol-induced disorder; Z43.0 Encounter for attention to tracheostomy; Z82.49 Family history of ischemic heart disease and other diseases of the circulatory system; Z83.3 Family history of diabetes mellitus; Z88.8 Allergy status to other drugs, medicaments and biological substances
CPT/HCPCS: 71045; 76604; 93454; 93571; 99153

== ENCOUNTER 2018-10-20 06:24 | Day surgery (SDC) | payer MEDICARE, OTHER ==
[~2018-10-20] VITALS: Ht 188 cm; Wt 81.6 kg
[2018-10-20] MEDS ORDERED: LIDOCAINE 2%HCL (LOCAL ANESTH.) INJ 20ML MDV ONE (07:25)
[2018-10-20] MEDS ORDERED: IODIXANOL 320MG/ML 100ML BTL IV ONE ×2 (07:25→08:15)
[2018-10-20 07:31] LABS: Basophils # (auto) 0.1 uL; Eosinophils # (auto) 0.2 uL; Eosinophils % (auto) 3.2 % (0.0-7.0); Hematocrit 30.8 % (41.0-53.0); Hemoglobin 10.3 g/dL (13.5-17.5); Lymphocytes # (auto) 0.8 uL; Lymphocytes % (auto) 13.9 % (10.0-50.0); Mean Corpuscular Hemoglobin 31.2 pg (28.0-32.0); Mean Corpuscular Hgb Conc. 33.4 g/dL (32.0-36.0); Mean Corpuscular Volume 93.2 fL (80.0-100.0); Monocytes # (auto) 0.8 uL; Monocytes % (auto) 13.9 % (0.0-12.0); Neutrophils # (auto) 4.1 uL; Nucleated Red Blood Cells % 0.1 %; Platelet Count (auto) 221 10^3/uL (140-450); Red Cell Distribution Width 17.2 % (11.8-14.3)
[2018-10-20 07:42] LABS: INR 1.01 (0.9-1.15); Prothrombin Time 10.8 sec (9.27-12.13)
[2018-10-20 07:49] LABS: BUN/Creatinine Ratio 40.6; Potassium 4.1 mmol/L (3.5-5.1)
[2018-10-20] MEDS ORDERED: fentaNYL CITRATE 100 MCG/2 ML VL ONE (08:09)
[2018-10-20] MEDS ORDERED: SODIUM CHL 0.9% 50 ML ONE (08:10)
[2018-10-20] MEDS ORDERED: ANGIOMAX 250 MG VIAL IV ONE (08:10)
[2018-10-20] MEDS ORDERED: VERAPAMIL 2.5MG/ML INJ 2ML VIAL IV ONE (08:39)
== END 2018-10-20 12:45 | disposition home or self-care (01) ==
LOC: CATH 06:24
PROVIDERS: ATTEND Internal Medicine
DX: I70.202 Unspecified atherosclerosis of native arteries of extremities, left leg (principal); F10.99 Alcohol use, unspecified with unspecified alcohol-induced disorder; I11.0 Hypertensive heart disease with heart failure; E11.51 Type 2 diabetes mellitus with diabetic peripheral angiopathy without gangrene; E78.5 Hyperlipidemia, unspecified; I25.2 Old myocardial infarction; J44.9 Chronic obstructive pulmonary disease, unspecified; Z87.891 Personal history of nicotine dependence; Z88.8 Allergy status to other drugs, medicaments and biological substances; Z93.0 Tracheostomy status; Z82.49 Family history of ischemic heart disease and other diseases of the circulatory system; Z83.3 Family history of diabetes mellitus; Z86.73 Personal history of transient ischemic attack (TIA), and cerebral infarction without residual deficits; Z79.82 Long term (current) use of aspirin; Z79.899 Other long term (current) drug therapy; Z95.5 Presence of coronary angioplasty implant and graft
CPT/HCPCS: 36415; 37230; 75710; 76942; 80048; 85025; 85610; A6257; C1725; C1769; C1887; J0583; J1644; J3010; J7030; Q9967; 99152; 99153